=== PATIENT | male | born 1960 | race Caucasian/White ===

== ENCOUNTER 2022-12-26 16:40 | Emergency (ER) | payer MEDICAID, SELFPAY ==
[2022-12-26 16:41] VITALS: BP 172/95; PULSE 119; RESP 18; TEMP 36; O2SAT 95; BMI 30.8
--- NOTE | 2022-12-26 16:46 | CM.ED ---
Niece and nephew advised that patient came to them after cutting himself. Nephew said that patient has been decompensating recently. Nephew reports that patient has been to [place] in the past but they let him leave. Nephew said that patient has been diagnosed as bipolar I. Vandana MCKNIGHT
[2022-12-26 17:31] LABS: Absolute Lymphocyte Count 3.33 X10^3/uL (0.83-4.51); Absolute Neutrophil Count 2.2 X10^3/uL (2.0-7.7); Basophil# 0.06 X10^3/uL; Eosinophil# 0.15 X10^3/uL; Eosinophils% 2.4 % (0-5); Hematocrit 41.7 % (40-54); Hemoglobin 13.8 g/dL (13.0-16.5); Lymphocyte # 3.33 X10^3/ul (0.83-4.51); Lymphocyte % 53.8 % (19-41); Mean Corp Hgb Conc 33.1 g/dL (32-36); Mean Corpuscular Hgb 30.5 pg (27.0-32.0); Mean Corpuscular Volume 92.3 fL (80-94); Mean Platelet Vol. 8.8 fl (6.2-12.0); Monocyte# 0.45 X10^3/uL; Monocyte% 7.3 % (0-10); NRBC Flagged by Analyzer 0 % (0-5); Neutrophil # 2.18 X10^3/uL (2.7-7.7); Neutrophil % 35.2 % (47-70); Platelet Count 142 K/mm3 (150-450); RBC Distribution Width CV 16.2 % (11.6-14.6); RBC Distribution Width SD 54.2 fl (35.1-43.9); Red Blood Count 4.52 M/mm3 (4.6-6.2); White Blood Count 6.2 K/mm3 (4.4-11.0)
[2022-12-26 17:45] LABS: Amphetamine Urine VISTA NEGATIVE (<1000 ng/mL); Barbiturate Urine VISTA NEGATIVE (< 200 ng/mL); Benzodiazepine Urine VISTA NEGATIVE (< 200 ng/mL); Cocaine Urine VISTA NEGATIVE (< 300 ng/mL); Ecstacy Urine VISTA NEGATIVE (< 500 ng/mL); Methadone Urine VISTA NEGATIVE (< 300 ng/mL); PCP Urine VISTA NEGATIVE (< 25 ng/mL); THC Urine VISTA NEGATIVE (< 50 ng/mL); Vista UDS pH Range 6
--- NOTE | 2022-12-26 17:48 | EX.ED.VIS.PS ---
HPI HPI - Psych History of Present Illness Chief Complaint: Suicidal Narrative Narrative: 62-year-old male brought to the ER by his niece and nephew at a concern for psychiatric problems. Has history of bipolar disorder. His nephew states that he and his sister have been checking on him throughout the week because his mother who normally cares for him is out of town for the week. His nephew states that his uncle came to him and asked if he could talk. He showed him his arm where he had did some superficial cutting behavior. Patient is patient's nephew leaned and dressed this. They state that they he was seen at [facility] last week for suicidal ideation. They state nothing was done. Patient denies being homicidal or suicidal. The 3 of them do not know all of his medications. PFSH PFS Medical History Bipolar disease, chronic Home Medications divalproex 500 mg tablet,delayed release 500 mg PO DAILY 12/26/22 [History Last Taken Unknown] mirtazapine 45 mg tablet 45 mg PO DAILY 12/26/22 [History Last Taken Unknown] Allergy/AdvReac Type Severity Reaction Status Date / Time codeine Allergy Other Verified 12/26/22 16:41 latex Allergy Other Verified 12/26/22 16:41 Social History Smoking Status: Smoker, status unknown ROS ROS ED Review of Systems ROS Unobtainable: Denies due to encephalopathy Constitutional Constitutional ED: Denies chills or fever(s) Eyes Eyes: Denies blurry vision or change in vision ENT ENT ED: Denies ear pain or rhinorrhea Cardiovascular Cardiovascular: Denies chest pain or palpitations Respiratory/Chest Respiratory/Chest: Denies cough or dyspnea Gastrointestinal Gastrointestinal: Denies abdominal pain or constipation Genitourinary Genitourinary ED: Denies dysuria or hematuria Musculoskeletal Musculoskeletal: Denies arthralgias or back pain Integumentary Reports Abrasions; Denies abscess Neurologic Neurologic: Denies headache(s) or paresthesias Psychiatric Psychiatric: Reports anxiety; Denies suicidal ideation or suicidal thoughts EXAM Physical Exam Const Vital Signs: 12/26/22 16:41 12/26/22 19:53 Temperature 96.8 F L Temperature Source Temporal Pulse Rate 119 H Respiratory Rate 18 16 Blood Pressure 172/95 H Blood Pressure Mean 120 Pulse Ox 95 Positive well nourished General Appearance ED: NAD; Negative for pallor HEENT normocephalic and atraumatic Eyes PERRL and EOMs intact bilaterally General Eye ED: Negative for pale conjunctiva or scleral icterus Neck no lymphadenopathy Resp normal respiratory effort and clear to auscultation bilaterally Cardio Rate: regular rate Rhythm: regular rhythm GI non-tender Neuro oriented x3 and CN's II-XII intact bilaterally Psych mental status grossly normal Attitude: calm and bizarre Activity / Motor Behavior: psychomotor agitation and disorganized Mood & Affect: sad and fearful Thought Process: normal thought process Thought Content: No suicidality and No homicidality Attention / Concentration: attention grossly intact and concentration grossly intact Memory / Cognition: memory grossly intact Insight: poor Judgement: poor Skin General Skin Exam: Negative for jaundice or pallor MDM MDM MDM Narrative Medical decision making narrative: Patient presenting for mental health assessment. I did speak with his daughter Alaina Jay([phone]). She states that he is bipolar. She states that he will always say he is not suicidal. He has been known to do cutting behavior and also to swallow fishhooks. He has been admitted for psychiatric care in the past. He was seen last week at [facility] and she states that he was not admitted. The only med she can recall her Seroquel and Depakote. She states she is out of town and unable to care for him. His niece and nephew are unable to care for him either. They have concerned that he will hurt himself. He was cutting himself with a knife. He has history of suicidal ideation. After speaking with his daughter it appears that he also drinks a lot. This is probably not helping his situation. We will obtain medical clearance and speak with social work. CBC obtained shows no leukocytosis. Hemoglobin hematocrit are stable. Renal function and electrolytes within normal limits. Urine drug screen is negative. I did check a Depakote level because the patient is reportedly on this procedure and it is subtherapeutic. Urine drug screen negative. EtOH elevated at 190 and will need to be rechecked at 10 PM. At this point he will be medically cleared. There is concerned that since he is at home alone and is always suicidal per his daughter that he will hurt himself. He does not have anyone to care for him. Clinically he cannot care for himself. It does appear that after speaking with social work the patient had already been contracted for safety at the end of November and this would be considered a failure of that contract. In light of this patient will be pink slipped and he will be admitted to stabilization unit. Impression: 1. Suicidal ideation 2. Cutting behavior 3. History of seizure disorder 4. Subtherapeutic valproic acid level 5. EtOH intoxication Lab Data Attestation: I reviewed the patient's lab results. Labs: Laboratory Results - last 24 hr 12/26/22 12/26/22 12/26/22 17:00 17:00 17:00 WBC 6.2 RBC 4.52 L Hgb 13.8 Hct 41.7 MCV 92.3 MCH 30.5 MCHC 33.1 RDW Std Deviation 54.2 H RDW Coeff of Fredi 16.2 H Plt Count 142 L MPV 8.8 Immature Gran % (Auto) 0.300 Neut % (Auto) 35.2 L Lymph % (Auto) 53.8 H [place] % (Auto) 7.3 Eos % (Auto) 2.4 Baso % (Auto) 1.0 Absolute Neuts (auto) 2.2 Absolute Lymphs (auto) 3.33 Nucleated RBC % 0 Sodium 139 Potassium 3.5 Chloride 107 Carbon Dioxide 21.0 Anion Gap 11 BUN 14 Creatinine 0.95 Estim Creat Clear Calc 83.25 Est GFR (MDRD) Af Amer 103 Est GFR (MDRD) Non-Af 85 BUN/Creatinine Ratio 14.7 Glucose 166 H Calcium 9.2 Urine Opiates Screen Urine Methadone Screen Ur Barbiturates Screen Valproic Acid Ur Phencyclidine Scrn Ur Amphetamines Screen MDMA (Ecstasy) Screen U Benzodiazepines Scrn Urine Cocaine Screen U Cannabinoids Screen Ur Drug Screen Comment Ethyl Alcohol 190.0 12/26/22 12/26/22 17:00 17:00 WBC RBC Hgb Hct MCV MCH MCHC RDW Std Deviation RDW Coeff of Fredi Plt Count MPV Immature Gran % (Auto) Neut % (Auto) Lymph % (Auto) [place] % (Auto) Eos % (Auto) Baso % (Auto) Absolute Neuts (auto) Absolute Lymphs (auto) Nucleated RBC % Sodium Potassium Chloride Carbon Dioxide Anion Gap BUN Creatinine Estim Creat Clear Calc Est GFR (MDRD) Af Amer Est GFR (MDRD) Non-Af BUN/Creatinine Ratio Glucose Calcium Urine Opiates Screen NEGATIVE Urine Methadone Screen NEGATIVE Ur Barbiturates Screen NEGATIVE Valproic Acid < 3 L Ur Phencyclidine Scrn NEGATIVE Ur Amphetamines Screen NEGATIVE MDMA (Ecstasy) Screen NEGATIVE U Benzodiazepines Scrn NEGATIVE Urine Cocaine Screen NEGATIVE U Cannabinoids Screen NEGATIVE Ur Drug Screen Comment Ethyl Alcohol Discharge Plan Triage Chief Complaint: Suicidal ED Provider: Escobar Sultana Dx/Rx/DC Orders Prescriptions: No Action divalproex 500 mg tablet,delayed release (DR/EC) 500 mg PO DAILY mirtazapine 45 mg tablet 45 mg PO DAILY Primary Care Provider: Care Physician,No Primary Referrals: Care Physician,No Primary [Primary Care Provider] -
[2022-12-26 17:49] LABS: Anion Gap 11 (5-15); BUN 14 mg/dL (7-18); BUN/Creat Ratio 14.7 RATIO (10-20); Calcium,Total 9.2 mg/dL (8.5-10.1); Chloride 107 mmol/L (98-107); Creatinine, Serum 0.95 mg/dL (0.70-1.30); EST Glomerular Filtration Rate 85 mL/min (>60); Est Glom Filt Rate - Afr Amer 103 mL/min (>60); Estimated Creatinine Clearance 83.25 ml/min; Glucose 166 mg/dL (74-106); Potassium 3.5 mmol/L (3.5-5.1); Sodium Level 139 mmol/L (136-145)
--- NOTE | 2022-12-26 18:04 | CM.ED ---
JOCE Note Referral Source: Chief Complaint: Patient said that he came to the ED because of this and showed this credit underwriter his arm with superficial cuts. Patient said that he cut himself with a carpet knife. SW asked about why patient had cut himself and patient said he was having crazy thoughts. Patient asked what the crazy thoughts were and patient said I want to cut myself all the time. SW asked why patient cut himself and he said I am not sure. Later patient asked why patient cut himself and he said I am not sure why... it's stupid. Patient said it comes on all of a sudden.. stupid boredom... I want winter to be over. SW asked patient if he wanted to and he said no. Patient was seen at [facility] for psych evaluation on 12/12/22 and safety plan. Patient is single. Patient is male and identifies himself as regular when asked about sexual orientation. Living Situation: Patient resides in a [facility] in [place] with his sister and daughter. Support: Patient's sister, who is currently out of town : Denied Education and Employment: Patient said that the last grade he attended was the 10th grade. He reports he was slow. Denied any Board of [employer] involvement. Patient reports he has no job. He is on disability for seizures. Mental Health Treatment: Patient said that [facility] who he talks to on the phone every 2 months. Patient said that he also sees a psychiatrist at the counseling center. Patient said that he has past psych hospitalizations in [place], where I used to live. Patient reports that he does not know his MH diagnosis. Patient reports medication compliance. SW spoke to staff at [facility]. Patient is diagnosed with Bipolar 1. Medication includes Seroquel 300mg, Depakote 500 Extended release and Mirtazapine 45mg. Patient only has a glass bender provider and has no follow up appointment scheduled with the provider. Patient has no counselor. Patient's psychiatric provider is Brian Griffin at [facility]. Triggers and Stressors: Patient said alot of depression when asked about triggers. Patient said that he is sleeping 6-7 hours at night and he does wake up at night but has not difficulty going back to sleep as long as I take my medicine. Patient said that he last weight in October but that was related to him having issues with his knees and being in the hospital and subsequent rehab. Coping Skills: Patient said find something to do.. radio or watch tv. Patient said that he uses his mountain bike when the weather is nice. Abuse: Denied Substance Abuse: Patient reports use of alcohol and states just beer. Patient denied drug use. Patient said that he had a few today. Patient denied drinking when cutting himself. Patient said that he drinks 5-6 beers every few days. Patient said that he does not have an issue with alcohol. Patient denied current SI. However, patient has superficial cuts on his arm. Patient said that he is depressed. Patient can not identify a trigger except that he has alot of depression. SW asked patient if the depression has increased and he said it goes up and down and he said that it's about the same. Patient reports previous psychiatric hospitalization in [place] after a suicide attempt after overdosing on his seizure medication. Patient said that he was in the medical hospital for 3 days and was in the psych hospital for 1 1/2 weeks following that attempt. Patient denied HI Patient was asked about self abusive behaviors and said not usually when asked about cutting. Patient said that he has has not cut for years and stated not since I have been in [place] which was in 2019. Patient denied any thoughts of self harm prior to today. Patient denied no violence to others or objects. Orientation: x4 Memory: Good Appearance: wearing hospital gown. Disheveled. Mood and affect: Depressed mood and affect Communication Pattern: Responds to questions Thought Process: Patient denied AH/VH. No evidence of attending to internal stimuli. General Intellectual Functioning: Below Average Judgement: Impaired Insight: Poor Patient had been seen by crisis on 12/12/22 and sent home with safety plan. The safety plan failed as patient presents to the ED today with cuts to his forearm. Patient voiced that he is depressed. Patient is unable to voice what a trigger was except that he has alot of depression. Patient has previous suicide attempt resulting in medical hospitalization and psych hospitalization. Patient needs inpatient psych for crisis stabilization and med management. JOCE consulted with MD Sultana who is in agreement that patient needs inpatient psych for stabilization. Plan: Inpatient Psych Vandana MCKNIGHT
[2022-12-26 18:20] LABS: Valproic Acid (Depakene) Level < 3 ug/mL (50-100)
--- NOTE | 2022-12-26 19:29 | CM.ED ---
JOCE received a call from Lisa at [facility]. They inquired as to when patient had his last seizure. JOCE spoke to patient and he said that he had his last seizure 3 weeks ago and he fell to the ground. JOCE received a phone call from Cherry at [facility]. Cherry said that they need a redraw of patient's BAL to show that it is trending down and a accurate med list. JOCE requested BAL redraw for patient. JOCE printed off the med list as per Bottle. JOCE faxed med list and pink slip to [facility]. Per Per Cherry once they received the requested information patient will be accepted. Accepting MD is Dr. Lopez with LEGAL BILLING ANALYST being [place]. Patient is going to [facility]. Rn to RN is [phone]. JOCE updated Lisa, apartment community assistant manager that we are waiting for BAL before transportation can be arranged. JOCE updated patient that he was accepted at [facility]. Vandana MCKNIGHT
[2022-12-26 19:53] VITALS: RESP 16
[2022-12-26] MEDS: Divalproex (ER) 500 MG Tablet PO (20:33)
[2022-12-26 21:00] VITALS: BP 142/77; PULSE 71; RESP 18; O2SAT 100
--- NOTE | 2022-12-26 21:24 | CM.ED ---
JOCE faxed BAL to [facility]. JOCE spoke to Charlee at [facility] and advised of current BAL. Charlee said that transport could be scheduled. Plan: [facility] Vandana MCKNIGHT
[2022-12-26 22:00] VITALS: RESP 18
--- NOTE | 2022-12-26 22:06 | ED.RN ---
PATIENTS SISTER UPDATED THAT HE WILL BE TRANSFERRED TO [facility]. SHE HAS NO FURTHER QUESTIONS AT THIS TIME
--- NOTE | 2022-12-26 22:13 | ED.RN ---
PATIENT HAS LEFT WITH [facility]. ATTEMPT TO CALL REPORT AT THIS TIME BUT NURSE IS WITH ANOTHER PATIENT AT THIS TIME. NURSE WILL CALL BACK
--- NOTE | 2022-12-26 23:10 | ED.RN ---
REPORT GIVEN TO ANASTACIA AT [facility]
== END 2022-12-26 22:15 ==
LOC: ED 17:41
PROVIDERS: Emergency Provider Student in an Organized Health Care Education/Training Program; Visit Provider Student in an Organized Health Care Education/Training Program
DX: R45.851 Suicidal ideations (principal); F10.129 Alcohol abuse with intoxication, unspecified; F31.9 Bipolar disorder, unspecified; G40.909 Epilepsy, unspecified, not intractable, without status epilepticus; Z79.899 Other long term (current) drug therapy; Y90.6 Blood alcohol level of 120-199 mg/100 ml
CPT/HCPCS: 36415; 80048; 80164; 80307; 82077; 85025; 87811; 99284